=== PATIENT | female | born 1950 | race Caucasian/White ===

== ENCOUNTER 2017-04-27 11:37 | Emergency (ER) | payer MEDICARE, MEDICAID ==
[~2017-04-27] VITALS: Ht 160 cm; Wt 90.7 kg
[2017-04-27 11:37] VITALS: BP_SYST 141
== END 2017-04-27 13:04 | disposition left against medical advice (07) ==
LOC: SED 11:37
DX: M79.89 Other specified soft tissue disorders (principal)
CPT/HCPCS: 99281

== ENCOUNTER 2021-12-30 15:51 | Emergency (ER) | payer OTHER, MEDICAID ==
[~2021-12-30] VITALS: Ht 152.4 cm; Wt 81.6 kg
[2021-12-30 16:56] VITALS: BP_SYST 137
--- NOTE | 2021-12-30 16:59 | NUR ---
Patient triaged and placed in waiting room. VSS and patient appears in no acute distress at this time. Accompanied by friend, awaiting available bed, and Dr. Sharif BAILEY notified of need for MSE.
--- NOTE | 2021-12-30 21:42 | NUR ---
CALLED FOR BED PLACEMENT. NOT IN WAITING ROOM
--- NOTE | 2021-12-30 21:45 | NUR ---
Patient not in lobby or outside. Pt did not answer name call to be taken to bed 7. Pt LWBS
== END 2021-12-30 21:45 | disposition left against medical advice (07) ==
LOC: SED 15:51
DX: S90.562A Insect bite (nonvenomous), left ankle, initial encounter (principal); Z53.21 Procedure and treatment not carried out due to patient leaving prior to being seen by health care provider; W57.XXXA Bitten or stung by nonvenomous insect and other nonvenomous arthropods, initial encounter; Y93.89 Activity, other specified; Y92.89 Other specified places as the place of occurrence of the external cause; Y99.8 Other external cause status